=== PATIENT | male | born 1945 | race Caucasian/White ===

== ENCOUNTER 2017-05-18 11:18 | Day surgery (SDC) | payer BC ==
[~2017-05-18] VITALS: Ht 167.6 cm; Wt 101.8 kg
[2017-05-18 12:34] VITALS: Ht 167.6 cm; Wt 101.8 kg
[2017-05-18] MEDS ORDERED: SILO8CAP PO (12:43)
[2017-05-18] MEDS ORDERED: TAMS0.4C2 PO (12:43)
[2017-05-18] MEDS ORDERED: LOSARTAN PO (12:43)
[2017-05-18] MEDS ORDERED: SYN1 PO (12:43)
[2017-05-18] MEDS ORDERED: LIDOCAINE 4% SOLUTION 50 ML BTL ONE (13:09)
[2017-05-18 13:20] VITALS: BP 172/84; PULSE 52; RESP 20
[2017-05-18] MEDS ORDERED: CEFAZOLIN 1 GM/50 ML (PMX) 50 ML IVPB ONE (13:42)
[2017-05-18 14:25] VITALS: BP 157/87; RESP 20
[2017-05-18] MEDS ORDERED: FLUMAZENIL 0.5 MG INJ ONE (17:48)
[2017-05-18] MEDS ORDERED: MIDAZOLAM 1 MG/ML 2 ML INJ ONE ×2 (17:48)
[2017-05-18] MEDS ORDERED: FENTAnyl 50 MCG/ML VIAL ONE (17:49)
--- NOTE | 2017-05-19 03:56 | GILP ---
DATE OF PROCEDURE: PREOPERATIVE DIAGNOSIS: Epigastric pain. He was sent for screening colonoscopy but because of his epigastric pain he underwent EGD with biopsy. POSTOPERATIVE DIAGNOSIS: Severe antral chronic gastritis and duodenal apex of the bulb. There is a suture, probably previous surgical suture. No ulcer seen. PROCEDURE PERFORMED: EGD with biopsy. DESCRIPTION OF PROCEDURE: The patient was put in left lateral decubitus after obtaining informed consent. Posterior pharynx anesthetized with 4 percent xylocaine and 2 mg IV Versed and 50 mcg of fentanyl given very carefully. Advanced an Olympus video upper endoscope into the esophagus, stomach and duodenum. A small hiatal hernia was noted. In the stomach, there was inflammatory changes. In the body and antrum very chronic severe inflammation noted and proximal antrum to the distal antrum and pyloric channel was inflamed. A random biopsy of this area was done and then examination of duodenal showed in the duodenal bulb apex and first part of the duodenum a black suture was noted but no ulcer was seen, and there is mild narrowing of the first part of the duodenum and then second part of the duodenum normal. Then I removed the scope slowly. PLAN: Will be to await for biopsy report. Also will try to get previous surgical reports if possible to find out what kind of surgery he had. Dictated By: Coleman Cerrato MD /kate/lemuel /Document#: [id number] ; Dr. Nelson; Marito Baker
--- NOTE | 2017-05-19 03:56 | GILP ---
DATE OF PROCEDURE: PREOP DIAGNOSIS: Screening colonoscopy. PROCEDURE PERFORMED: Colonoscopy, biopsy and tattooing. POSTOP DIAGNOSIS: Diverticulosis in the left colon with an inflammatory polypoid mucosal fold with wide base at 40 cm, possible inflammation rather than true polyp. Biopsy of this area done, a small inflammatory polyp next to it also biopsied. Fixed right colon. DESCRIPTION OF PROCEDURE: The patient was put in left lateral decubitus after obtaining informed consent. After EGD biopsy and proceeded to sedating further, an Olympus video colonoscope was advanced after 2 mg IV Versed and 50 mcg of fentanyl. Rectal exam showed some hemorrhoids grade 2. Advanced Olympus video colonoscope all the way to the right colon, could enter only the ascending colon, cecal border as the ileocecal valve identified, appendiceal opening not seen. Scope was withdrawn back. Fixed right hepatic flexure and then slowly withdrew, transverse colon unremarkable. Descending colon, sigmoid colon showed not only diverticulosis but am inflammatory polypoid flat mucosal fold which has a 1.5 cm wide base. This was photographed and I decided not to do polypectomy here as it may not be polyp. Biopsies were done. Tattooing done. Next to this another small inflammatory polyp was noted. This was taken out by biopsy forceps, this was at 40 cm level. Then slowly scope was withdrawn. Rectum unremarkable except for retroflexion showed grade 2 internal hemorrhoids. Upon removal of scope, the patient had no complication. PLAN: Will be to await for the biopsy report and Ancef 1 mg IV also given. Follow up as outpatient and depending on the biopsy report we will make a decision. Dictated By: Coleman Cerrato MD /kate/lemuel /Document#: [id number] ; Dr. Marito Baker
== END 2017-05-18 16:22 | disposition home or self-care (01) ==
LOC: GIL 11:18
PROVIDERS: ATTEND Internal Medicine
DX: Z12.11 Encounter for screening for malignant neoplasm of colon (principal); K63.5 Polyp of colon; K57.30 Diverticulosis of large intestine without perforation or abscess without bleeding; K29.50 Unspecified chronic gastritis without bleeding; I10 Essential (primary) hypertension; E11.9 Type 2 diabetes mellitus without complications; Z90.49 Acquired absence of other specified parts of digestive tract
CPT/HCPCS: 43239; 45380; 45381; 82962; J0690; Z7610; 88305; 88312; J2250; J3010

== ENCOUNTER 2019-04-25 05:57 | Day surgery (SDC) | payer BC ==
[~2019-04-25] VITALS: Ht 167.6 cm; Wt 96.2 kg
[~2019-04-25 05:57] MED LIST: LEVO-86 PO; LOSARTAN PO; SILO8CAP2 PO; TAMS0.4C2 PO
[2019-04-25] MEDS ORDERED: LOSA100T15 PO (07:09)
[2019-04-25] MEDS ORDERED: ASPI-903 PO (07:09)
[2019-04-25] MEDS ORDERED: METF-849 PO (07:09)
[2019-04-25] MEDS ORDERED: AMLO5TAB4 PO (07:09)
[2019-04-25] MEDS ORDERED: CLOP75TA27 PO (07:09)
[2019-04-25 07:11] VITALS: Ht 167.6 cm; Wt 96.2 kg
--- NOTE | 2019-04-25 07:31 | PREAC ---
Date/Time of Note Date/Time of Note DATE: 04/25/19 TIME: 07:30 Anesthesia Eval and Record Evaluation Time Pre-Procedure Interview DATE: 04/25/19 TIME: 07:30 Age 73 Sex male NPO: 8 hrs Preoperative diagnosis dyspepsia Planned procedure EGD Past Medical History Past Medical History: Includes Cardio: HTN, Dyslipidemia Endo: Diabetes Neuro: CVA Musculoskeletal: Osteoarthritis Heme: Anemia Surgery & Anesthesia Issues No known issue Meds Anticoagulation: No Beta Cyndie within 24 hr: No Reason Beta Cyndie not given: Pt. not on B-Cyndie Reported Medications Clopidogrel Bisulfate (Clopidogrel) 75 Mg Tablet, 75 MG PO DAILY, #30 TAB 04/25/19 Metformin* (Glucophage*) 500 Mg Tab, 500 MG PO WITH MEALS, #90 TAB 04/25/19 Losartan Potassium* (Losartan Potassium*) 100 Mg Tablet, 100 MG PO DAILY, TAB 04/25/19 Aspirin* (Aspirin* Chew) 81 Mg Tab.chew, 81 MG PO DAILY, TAB.CHEW 04/25/19 Amlodipine Besylate* (Norvasc*) 5 Mg Tablet, 5 MG PO DAILY, TAB 04/25/19 Tamsulosin Hcl* (Tamsulosin Hcl*) 0.4 Mg Cap.er.24h, 0.4 MG PO DAILY, CAP 05/18/17 Levothyroxine Sodium (Levothroid) 100 Mcg Tablet, 100 MCG PO DAILY, #30 TAB 05/18/17 Discontinued Reported Medications Silodosin (Rapaflo) 8 Mg Capsule, 8 MG PO HS, CAP 05/18/17 [Losartan] No Conflict Check, PO DAILY 05/18/17 Meds reviewed: Yes Allergies Coded Allergies: No Known Allergy (Unverified , 05/18/17) Allergies Reviewed: Yes Labs/Studies Labs Reviewed: Reviewed by anesthesiologist test: N/A Studies: ECG Pre-procedure Exam Airway: Adequate mouth opening, Adequate thyromental dist Mallampati: Mallampati II Teeth: Abnormal Lung: Normal Heart: Normal ASA Physical Status ASA physical status: 3 Emergency: None Planned Anesthetic General/MAC: MAC Pre-operative Attestations Prior to commencing anesthesia and surgery, the patient was re-evaluated, there was verification of: *The patient's identity *The results of appropriate recent lab work and preoperative vital signs *The above evaluation not changing prior to induction *Anesthetic plan, risk benefits, alternative and complications discussed with patient/family; questions answered; patient/family understands, accepts and wishes to proceed. ROLANDO MCPHERSON Apr 25, 2019 07:31
[2019-04-25] MEDS ORDERED: PROPOFOL 20 ML ONE (07:35)
[2019-04-25 07:39] VITALS: BP 123/66; PULSE 53; RESP 18
[2019-04-25 08:26] VITALS: BP 137/72; PULSE 51; RESP 18
[2019-04-25] MEDS ORDERED: LEVO100T82 PO (09:13)
[2019-04-25] MEDS ORDERED: LEVO125T71 PO (09:13)
[2019-04-25] MEDS ORDERED: HYDR25TA6 PO (09:14)
[2019-04-25] MEDS ORDERED: LATA2.5D2 BOTH EYES (09:15)
[2019-04-25] MEDS ORDERED: LORA10TA3 PO (09:15)
--- NOTE | 2019-04-28 17:15 | RADRPT ---
Vent Rate: 46 bpm RR Interval: 1296 msec OR Interval: 206 msec QRS Duration: 107 msec QT Interval: 474 msec QTC Interval: 416 msec P-R-T Cap[place]: 53 - 48 - 207 degrees Sinus bradycardia...rate< 50 Repol abnrm, global ischemia, diffuse leads...ST dep, T neg, ant/lat/inf Electronically Signed By: Fred Akers
== END 2019-04-25 10:00 | disposition short-term general hospital (02) ==
LOC: GIL 05:57
PROVIDERS: ATTEND Internal Medicine Gastroenterology
DX: R10.13 Epigastric pain (principal); Z53.09 Procedure and treatment not carried out because of other contraindication; R00.1 Bradycardia, unspecified
CPT/HCPCS: 82962; 93005; Z7610

== ENCOUNTER 2019-04-25 08:45 | Inpatient (IN) | payer BC ==
[~2019-04-25] VITALS: Ht 162.6 cm; Wt 86.0 kg
[~2019-04-25 08:45] MED LIST changes: +AMLO5TAB4 PO; +ASPI-903 PO; +CLOP75TA27 PO; +LOSA100T15 PO; +METF-849 PO
[2019-04-25] MEDS ORDERED: NITROGLYCERIN 2% 1 GM OINT PKT TD STA (09:02)
[2019-04-25] MEDS ORDERED: ASPIRIN 81 MG TAB PO STA (09:02)
[2019-04-25] MEDS ORDERED: LEVO125T71 PO (09:13)
[2019-04-25] MEDS ORDERED: LEVO100T82 PO (09:13)
[2019-04-25] MEDS ORDERED: HYDR25TA6 PO (09:14)
[2019-04-25] MEDS ORDERED: LORA10TA3 PO (09:15)
[2019-04-25] MEDS ORDERED: LATA2.5D2 BOTH EYES (09:15)
[2019-04-25] MEDS ORDERED: ACETAMINOPHEN 325 MG TAB PO PRN (09:30)
[2019-04-25] MEDS ORDERED: NITROGLYCERIN (SL) 0.4 MG TAB SL PRN (09:30)
[2019-04-25] MEDS ORDERED: ONDANSETRON 4 MG INJ IV PRN (09:30)
--- NOTE | 2019-04-25 11:31 | CONS ---
DATE OF ADMISSION: 04/25/2019 DATE OF CONSULTATION: 04/25/2019 TYPE OF CONSULTATION: Cardiology REASON FOR CONSULTATION: Electrocardiogram, assess for acute coronary syndrome. REQUESTING PHYSICIAN: Dr. Posadas. HISTORY OF PRESENT ILLNESS: Mr. Perez is a 73-year-old male with a history of coronary artery disease , on medications, hypertension, hypothyroidism, diabetes mellitus, BPH who had presented for an outpa tient endoscopy procedure given complaints of dyspepsia ongoing for multiple weeks. In fact, ongoing for multiple years. The patient states he does do a weekly workouts at the gym and does not get any exertional chest pain or shortness of breath. PAST MEDICAL HISTORY: As above in HPI. MEDICATIONS PRIOR TO ADMIT: 1. Flomax 0.4 mg daily. 2. Plavix 75 mg daily. 3. Norvasc 5 mg daily. 4. Losartan 100 mg daily. 5. Aspirin 81 mg daily. 6. Hydrochlorothiazide 25 mg daily. 7. Latanoprost 1 drop to eyes. 8. Synthroid 100 mcg daily. 9. Metformin 500 mg with meals. ALLERGIES: NO KNOWN DRUG ALLERGIES. MEDICATIONS CURRENTLY IN HOSPITAL: Pending at this time. SOCIAL HISTORY: No current tobacco, ETOH or illicit drug use. FAMILY HISTORY: No history of sudden cardiac or early CAD. REVIEW OF SYSTEMS: As above in HPI. CONSTITUTIONAL: No fevers, chills. PULMONARY: No current shortness of breath. CARDIOVASCULAR: No current chest pain. GASTROINTESTINAL: Abdominal pain. GENITOURINARY: No hematuria. MUSCULOSKELETAL: Degenerative joint disease. PSYCHIATRIC: The patient has depression. NEUROLOGIC: No documented history of CVA. ENDOCRINE: No documented history of diabetes mellitus. PHYSICAL EXAMINATION: VITAL SIGNS: Temperature 98.2, blood pressure 138/76, pulse 118, sat 99%. GENERAL: The patient is alert, awake, no acute distress. NECK: JVP approximately 8 to 9 cm of water. CHEST: Fair air movement throughout. HEART: Regular rate and rhythm. Normal S1, S2, 1/6 systolic murmur. Nondisplaced PMI. ABDOMEN: Positive bowel sounds, soft. Tender to palpation in mid epigastric. EXTREMITIES: No edema, 1+ pulses bilateral posterior tibial. LABORATORY DATA: Most recent from today, white count 6.2, hemoglobin 12.4, platelet count of 148. S odium 140, potassium 4.6, creatinine 0.9, BUN of 22. Troponin negative. IMAGING STUDIES: Chest x-ray from the revealing mild cardiomegaly. ELECTROCARDIOGRAM: Reveals sinus bradycardia, rate of 44 with inferior and lateral T-wave inversions . IMPRESSION: 1. Abnormal electrocardiogram, assess for acute coronary syndrome. 2. Abdominal pain, rule out inferior ischemia. 3. Hypertension. 4. Dyslipidemia. 5. Diabetes mellitus. 6. Dyspepsia. RECOMMENDATIONS: 1. At this time, would admit patient to telemetry monitoring to follow rhythm and rate control close ly. 2. We would complete a rule out for myocardial infarction to ensure the patient's EKG abnormalities are chronic in nature and not due to any recent acute coronary syndrome. 3. Resume the patient's baseline angiotensin Losartan and Norvasc and hydrochlorothiazide. 4. Continue patient's aspirin at this time . We possibly could hold Plavix if the patient is to still undergo procedures during the time of rule out. 5. Follow the patient's blood sugars closely, adjust Metformin as necessary. 6. Continue the patient's Synthroid and check a TSH to assess the patient's current thyroid state. 7. Check a 2D echo to assess patient's ejection fraction, wall motion and major abnormalities, and w ill consider stress testing of this patient for the possibility of significant coronary disease and s ymptoms of epigastric pain in the setting of abnormal electrocardiograms and electrocardiographic emerald nges. Dictated By: NICOLE ALVARENGA/MARTHA Conf#: [id number] DID#: [id number] CC: SAVI KWOK MD;*End*
--- NOTE | 2019-04-25 12:09 | ERD ---
ER Documentation Chief Complaint Chief Complaint came from GI lab for EGD, sent by for EKG =SB with inverted T waves HPI Patient is a 73-year-old male with diabetes and hypertension who presents with abnormal EKG. He was at the GI lab to get an endoscopy done but screening EKG showed diffuse flipped T waves and so the procedure was aborted and the patient was sent to the emergency department. He has been complaining of dyspepsia which was the reason for the endoscopy in the first place. He denies chest pain at this time or dizziness. He has no headache. He has had no treatment as of yet. ROS All systems reviewed and are negative except as per history of present illness. Medications Home Meds Reported Medications Loratadine* (Loratadine*) 10 Mg Tablet, 10 MG PO DAILY, #30 TAB 04/25/19 Latanoprost (Latanoprost) 2.5 Ml Drops, 1 DROP BOTH EYES QHS, #1 BOTTLE 04/25/19 Hydrochlorothiazide* (Hydrochlorothiazide*) 25 Mg Tab, 25 MG PO DAILY, #30 TAB 04/25/19 Levothyroxine Sodium* (Levoxyl*) 125 Mcg Tablet, 125 MCG PO EVERY OTHER DAY, #30 TAB 04/25/19 Levothyroxine Sodium* (Levoxyl*) 100 Mcg Tablet, 100 MCG PO EVERY OTHER DAY, #30 TAB 04/25/19 Clopidogrel Bisulfate (Clopidogrel) 75 Mg Tablet, 75 MG PO DAILY, #30 TAB 04/25/19 Metformin* (Glucophage*) 500 Mg Tab, 500 MG PO WITH MEALS, #90 TAB 04/25/19 Losartan Potassium* (Losartan Potassium*) 100 Mg Tablet, 100 MG PO DAILY, TAB 04/25/19 Aspirin* (Aspirin* Chew) 81 Mg Tab.chew, 81 MG PO DAILY, TAB.CHEW 04/25/19 Amlodipine Besylate* (Norvasc*) 5 Mg Tablet, 5 MG PO DAILY, TAB 04/25/19 Tamsulosin Hcl* (Tamsulosin Hcl*) 0.4 Mg Cap.er.24h, 0.4 MG PO DAILY, CAP 05/18/17 Discontinued Reported Medications Silodosin (Rapaflo) 8 Mg Capsule, 8 MG PO HS, CAP 05/18/17 Levothyroxine Sodium (Levothroid) 100 Mcg Tablet, 100 MCG PO DAILY, #30 TAB 05/18/17 [Losartan] No Conflict Check, PO DAILY 05/18/17 Allergies Allergies: Coded Allergies: No Known Allergy (Unverified , 04/25/19) PMhx/Soc History of Surgery: Yes (APPENDECTOMY, CHOLECYSTECTOMY) Anesthesia Reaction: No Hx Neurological Disorder: Yes (LEFT CVA) Hx Respiratory Disorders: No Hx Cardiac Disorders: Yes (HTN, DYSLIPIDEMIA, CA) Hx Psychiatric Problems: No Hx Miscellaneous Medical Probl: No Hx Alcohol Use: Yes Hx Substance Use: No Hx Tobacco Use: Yes Smoking Status: Former smoker FmHx Family History: No diabetes Physical Exam Vitals Vital Signs Date Temp Pulse Resp B/P (MAP) Pulse Ox O2 O2 Flow FiO2 Time Delivery Rate 04/25/19 98.6 55 18 107/74 99 Room Air 11:36 (85) 04/25/19 Nasal 2 09:11 Cannula 04/25/19 98.2 51 18 138/76 99 08:49 (96) Physical Exam Const: No acute distress Head: Atraumatic Eyes: Normal Conjunctiva ENT: Normal External Ears, Nose and Mouth. Neck: Full range of motion. No meningismus. Resp: Clear to auscultation bilaterally Cardio: Regular rate and rhythm, no murmurs Abd: Soft, non tender, non distended. Normal bowel sounds Skin: No petechiae or rashes Back: No midline or flank tenderness Ext: No cyanosis, or edema Neur: Awake and alert Psych: Normal Mood and Affect Result Diagram: 04/25/1990404/25/19904 Results 24 hrs Laboratory Tests Test 04/25/19 09:05 White Blood Count 6.2 10^3/ul Red Blood Count 4.09 10^6/ul Hemoglobin 12.4 g/dl Hematocrit 37.3 % Mean Corpuscular Volume 91.2 fl Mean Corpuscular Hemoglobin 30.3 pg Mean Corpuscular Hemoglobin Concent 33.2 g/dl Red Cell Distribution Width 12.8 % Platelet Count 148 10^3/UL Mean Platelet Volume 10.2 fl Immature Granulocytes % 0.300 % Neutrophils % 58.2 % Lymphocytes % 30.5 % Monocytes % 8.4 % Eosinophils % 2.3 % Basophils % 0.3 % Nucleated Red Blood Cells % 0.0 /100WBC Immature Granulocytes # 0.020 10^3/ul Neutrophils # 3.6 10^3/ul Lymphocytes # 1.9 10^3/ul Monocytes # 0.5 10^3/ul Eosinophils # 0.1 10^3/ul Basophils # 0.0 10^3/ul Nucleated Red Blood Cells # 0.0 10^3/ul Sodium Level 140 mmol/L Potassium Level 4.6 mmol/L Chloride Level 106 mmol/L Carbon Dioxide Level 28 mmol/L Anion Gap 6 Blood Urea Nitrogen 22 mg/dl Creatinine 0.93 mg/dl Est Glomerular Filtrat Rate mL/min mL/min Glucose Level 135 mg/dl Calcium Level 8.8 mg/dl Troponin I < 0.012 ng/ml Current Medications Medications Dose Sig/Bernice Start Time Status Last (Trade) Ordered Route PRN Stop Time Admin Dose Reason Admin Aspirin 162 mg ONCE STAT 04/25/19 DC 04/25/19 (Aspirin) PO 09:02 09:23 04/25/19 09:03 1 inch ONCE STAT 04/25/19 DC 04/25/19 Nitroglycerin TD 09:02 09:23 04/25/19 09:03 (Nitroglyceri n 2% Oint) 1 tab Q5M UP TO 3 04/25/19 Nitroglycerin DOSES PRN 09:30 SL .CHEST (Nitroglyceri PAIN n (Sl Tab) 0.4 Mg) Ondansetron 4 mg ER BRIDGE 04/25/19 HCl (Zofran PRN IV 09:30 Inj) NAUSEA/VOMITI 04/26/19 09:29 NG 650 mg ER BRIDGE 04/25/19 Acetaminophen PRN PO 09:30 (Tylenol .MILD PAIN 04/26/19 09:29 Tab) 1-3 OR TEMP Amlodipine 5 mg DAILY PO 04/26/19 Besylate 09:00 (Norvasc) Aspirin 81 mg DAILY PO 04/26/19 (Aspirin) 09:00 25 mg DAILY PO 04/26/19 Hydrochloroth 09:00 iazide (Hydrochlorot hiazide) Losartan 100 mg DAILY PO 04/26/19 Potassium 09:00 (Cozaar) Procedures/MDM EKG #1 read by me: Rate/Rhythm: Regular rate and rhythm at a normal rate Intervals: Normal Impression: Flipped T waves in the lateral leads EKG #2 read by me: Rate/Rhythm: Regular rate and rhythm at a normal rate Intervals: Normal Impression: Flipped T waves in the lateral leads Chest x-ray read by radiology. Patient is a 73-year-old male with multiple cardiac risk factors who presents with abnormal EKG. He was sent from the GI lab. He denies chest pain at this time however there is diffuse flipped T waves in the lateral leads. I am concerned for possible ischemia. The patient was given aspirin and nitroglycerin. Initial troponin is negative. The patient will be admitted to a telemetry observation bed. He has been seen by Dr. Ornelas from cardiology. Departure Diagnosis: Primary Impression: Abnormal EKG Condition: SAVI Campo MD Apr 25, 2019 12:09
[2019-04-25 13:27] VITALS: PULSE 51
[2019-04-25 13:35] VITALS: BP 134/73; PULSE 50; RESP 18
[2019-04-25 14:03] VITALS: Ht 162.6 cm; Wt 86.0 kg
--- NOTE | 2019-04-25 14:10 | RADRPT ---
Echocardiogram Report Patient Name: KASSANDRA STONEPatient ID: [id number] : 1945 (73y 11m)Study Date: 04/25/2019 10:59:37 AM Gender: MAccession #: [id number] Tech: Maxim Ferrara [facility] Location: [facility] Ref.Physician: NICOLE ORNELAS Height(Cm): BSA: Weight(Kg): Quality: AdequateOrder Physician: NICOLE ORNELAS Account #: Procedures: Echocardiographic Report: Transthoracic echocardiogram with complete 2D, M-Mode, and doppler examination. Indications: Abnormal EKG. Measurements: 2D/M Mode Doppler Measurement Value Normal Range Measurement Value Normal Range LVIDd 2D 5.0 [ 4.2 - 5.8 ] cm AV Peak Kevin 1.3 [ 100.0 - 170.0 ] cm/sec LVIDs 2D 3.4 [ 2.5 - 4.0 ] cm AV Peak PG 7.0 [ 2.0 - 9.0 ] mmHg LVPWd 2D 0.9 [ 0.6 - 1.0 ] cm LVOT Peak Kevin 1.3 [ 70.0 - 110.0 ] cm/sec IVSd 2D 1.8 [ 0.6 - 1.0 ] cm LVOT Peak PG 6.0 [ 2.0 - 6.0 ] mmHg AoR Diam 2D 3.3 [ 2.6 - 3.4 ] cm MV E Peak Kevin 0.7 [ 60.0 - 130.0 ] cm/sec EDV 2D 118.0 [ 62.0 - 150.0 ] ml MV A Peak Kevin 0.8 [ 100.0 - 120.0 ] cm/sec ESV 2D 48.1 [ 21.0 - 61.0 ] ml MV E/A 0.8 [ 0.8 - 1.5 ] ratio EF 2D 59.2 [ 52.0 - 72.0 ] percent MV Decel Time 261 [ 104 - 258 ] msec LA Dimen 2D 3.6 [ 3.0 - 4.0 ] cm Lat E` Kevin 0.1 [ 10.0 - 15.0 ] cm/sec Lateral E/E` 11.5 [ 1.0 - 2.0 ] ratio Med E` Kevin 0.0 cm/sec MV E/A 0.8 [ 0.8 - 1.5 ] ratio TR Peak Kevin 1.8 [ 100.0 - 280.0 ] cm/sec TR Peak PG 13.0 mmHg RVSP 16.0 [ 10.0 - 36.0 ] mmHg Findings: Left Ventricle: Normal left ventricular systolic function. Normal left ventricular cavity size. Moderate asymmetric septal hypertrophy. Ejection fraction is visually estimated at 60-65 %. Tissue Doppler/Mitral Doppler indices are consistent with impaired relaxation (Stage I diastolic dysfunction). Right Ventricle: Normal right ventricular size. Normal right ventricular systolic function. Left Atrium: The left atrium is normal in size. Right Atrium: The right atrium is normal in size. Mitral Valve: Mild mitral leaflet calcification. Mild mitral annular calcification. Trace mitral regurgitation. Aortic Valve: No significant aortic stenosis or insufficiency. Aortic cusps appear mildly calcified. Tricuspid Valve: Normal appearance of the tricuspid valve. The estimated Peak RVSP is 16 mmHg. There is trace tricuspid regurgitation. Pericardium: Normal pericardium with no significant pericardial effusion. Left pleural effusion seen. Aorta: Normal aortic root. IVC: Normal size and normal respiratory collapse consistent with normal right atrial pressure. Conclusions: Normal left ventricular systolic function. Normal left ventricular cavity size. Moderate asymmetric septal hypertrophy. Ejection fraction is visually estimated at 60-65 %. Tissue Doppler/Mitral Doppler indices are consistent with impaired relaxation (Stage I diastolic dysfunction). ). Mild mitral leaflet calcification. Mild mitral annular calcification. Trace mitral regurgitation. Normal appearance of the tricuspid valve. The estimated Peak RVSP is 16 mmHg. There is trace tricuspid regurgitation. Electronically Signed By: Nicole Ornelas 2019-04-25 14:09:36 PDT
[2019-04-25 15:49] VITALS: BP 140/74; PULSE 52; RESP 18
[2019-04-25 16:00] VITALS: PULSE 50
[2019-04-25] MEDS: TAMSULOSIN (SR) 0.4 MG CAP PO SCH (17:00)
[2019-04-25] MEDS: INSULIN ASPART [NOVOLOG] 3 ML PEN SC SCH ×2 (17:01→21:00)
[2019-04-25] MEDS: metFORMIN 500 MG TAB PO SCH (17:56)
[2019-04-25 20:00] VITALS: BP 130/72; PULSE 56; RESP 18
[2019-04-25] MEDS: LATANOPROST 0.005% 2.5 ML OPH BOTH EYES SCH (21:00)
[2019-04-25 23:01] VITALS: PULSE 44
[2019-04-26] VITALS (10 sets, daily range): BP systolic 119–147; BP diastolic 60–92; PULSE 51–64; RESP 18
[2019-04-26] MEDS: INSULIN ASPART [NOVOLOG] 3 ML PEN SC SCH ×4 (07:55→21:00)
[2019-04-26] MEDS: ASPIRIN 81 MG TAB PO SCH (08:52)
[2019-04-26] MEDS: HYDROCHLOROTHIAZIDE 25 MG TAB PO SCH (08:53)
[2019-04-26] MEDS: metFORMIN 500 MG TAB PO SCH ×3 (08:53→17:46)
[2019-04-26] MEDS: LOSARTAN 50 MG TAB PO SCH (08:53)
[2019-04-26] MEDS: TAMSULOSIN (SR) 0.4 MG CAP PO SCH (08:53)
[2019-04-26] MEDS: LORATADINE 10 MG TAB PO SCH (08:53)
[2019-04-26] MEDS: LEVOTHYROXINE 100 MCG TAB PO SCH (08:56)
[2019-04-26] MEDS ORDERED: AMLODIPINE 5 MG TAB PO SCH (09:00)
[2019-04-26] MEDS ORDERED: REGADENOSON 0.4 MG/5 ML SYG ONE (13:16)
--- NOTE | 2019-04-26 13:48 | CONS ---
Consult Date/Type/Reason Admit Date/Time Apr 25, 2019 at 09:07 Initial Consult Date Date/Time of Note DATE: 04/26/19 TIME: 13:47 Subjective NO acute events - pt comfortable - completed Stress test - will have results by early PM. ROS: No fever, no chills, no nausea, no vomiting, no diarrhea/constipation No recent weight changes No chest pain, no PND, no orthopnea No dizziness, blurred vision No thirst, no heat or cold intolerance Objective Vitals Vital Signs Date Temp Pulse Resp B/P (MAP) Pulse Ox O2 O2 Flow FiO2 Time Delivery Rate 04/26/19 98.3 55 18 147/81 100 11:51 (103) 04/25/19 Room Air 13:00 04/25/19 2 09:11 Intake and Output 04/25/19 04/25/19 04/26/19 1515:00 23:00 07:00 IntakeIntake Total 240 ml 540 ml OutputOutput Total 1 ml 2 ml BalanceBalance 239 ml 538 ml Exam General: WN/WD/NAD, AOx 3 HEENT: Unicetric/atraumatic/EOMI (follows commands) NECK: JVD elevated, no thyromegaly Lymph: no lymphadenopathy HEART: regular with no S3, II/ systolic murmur at apex LUNGS: Coarse sounds ABD: soft, NT, ND, +BS : Intact Neuro: non focal SKIN: chronic changes EXT: trace edema Results/Medications Result Diagram: 04/25/1990404/25/19904 Results 24 hrs Laboratory Tests Test 04/25/19 15:06 04/25/19 17:01 04/25/19 20:25 04/25/19 21:21 Creatine Kinase 68 68 Creatine Kinase 1.9 1.7 Index Creatinine Kinase MB 1.32 1.15 (Mass) Troponin I < 0.012 < 0.012 Bedside Glucose 107 173 Test 04/26/19 05:52 04/26/19 07:59 04/26/19 11:54 Triglycerides Level 112 Cholesterol Level 134 LDL Cholesterol, 70 Calculated HDL Cholesterol 42 Cholesterol/HDL 3.1 Ratio Thyroid Stimulating 8.340 H Hormone (TSH) Bedside Glucose 123 132 Home Meds Reported Medications Loratadine* (Loratadine*) 10 Mg Tablet, 10 MG PO DAILY, #30 TAB 04/25/19 Latanoprost (Latanoprost) 2.5 Ml Drops, 1 DROP BOTH EYES QHS, #1 BOTTLE 04/25/19 Hydrochlorothiazide* (Hydrochlorothiazide*) 25 Mg Tab, 25 MG PO DAILY, #30 TAB 04/25/19 Levothyroxine Sodium* (Levoxyl*) 125 Mcg Tablet, 125 MCG PO EVERY OTHER DAY, #30 TAB 04/25/19 Levothyroxine Sodium* (Levoxyl*) 100 Mcg Tablet, 100 MCG PO EVERY OTHER DAY, #30 TAB 04/25/19 Clopidogrel Bisulfate (Clopidogrel) 75 Mg Tablet, 75 MG PO DAILY, #30 TAB 04/25/19 Metformin* (Glucophage*) 500 Mg Tab, 500 MG PO WITH MEALS, #90 TAB 04/25/19 Losartan Potassium* (Losartan Potassium*) 100 Mg Tablet, 100 MG PO DAILY, TAB 04/25/19 Aspirin* (Aspirin* Chew) 81 Mg Tab.chew, 81 MG PO DAILY, TAB.CHEW 04/25/19 Amlodipine Besylate* (Norvasc*) 5 Mg Tablet, 5 MG PO DAILY, TAB 04/25/19 Tamsulosin Hcl* (Tamsulosin Hcl*) 0.4 Mg Cap.er.24h, 0.4 MG PO DAILY, CAP 05/18/17 Discontinued Reported Medications Silodosin (Rapaflo) 8 Mg Capsule, 8 MG PO HS, CAP 05/18/17 Levothyroxine Sodium (Levothroid) 100 Mcg Tablet, 100 MCG PO DAILY, #30 TAB 05/18/17 [Losartan] No Conflict Check, PO DAILY 05/18/17 Medications Current Medications Nitroglycerin (Nitroglycerin (Sl Tab) 0.4 Mg) 1 tab Q5M UP TO 3 DOSES PRN SL .CHEST PAIN; Start 04/25/19 at 09:30 Aspirin (Aspirin) 81 mg DAILY PO Last administered on 04/26/19at 08:52; Admin Dose 81 MG; Start 04/26/19 at 09:00 Hydrochlorothiazide (Hydrochlorothiazide) 25 mg DAILY PO Last administered on 04/26/19at 08:53; Admin Dose 25 MG; Start 04/26/19 at 09:00 Losartan Potassium (Cozaar) 100 mg DAILY PO Last administered on 04/26/19at 08:53; Admin Dose 100 MG; Start 6/25/19 at 09:00 Latanoprost (Xalatan) 1 drop QHS BOTH EYES Last administered on 04/25/19 21:00; Admin Dose 1 DROP; Start 04/25/19 at 21:00 Levothyroxine Sodium (Synthroid) 100 mcg AC BREAKFAST PO Last administered on 04/26/19 08:56; Admin Dose 100 MCG; Start 04/26/19 at 07:25 Loratadine (Claritin) 10 mg DAILY PO Last administered on 04/26/19 08:53; Admin Dose 10 MG; Start 04/26/19 at 09:00 Metformin HCl (Glucophage) 500 mg WITH MEALS PO Last administered on 04/26/19 08:53; Admin Dose 500 MG; Start 04/25/19 at 17:55 Tamsulosin HCl (Flomax) 0.4 mg DAILY PO Last administered on 04/26/19 08:53; Admin Dose 0.4 MG; Start 04/25/19 at 15:00 Insulin Aspart (Novolog Insulin Pen) NOVOLOG *MILD* ALGORI... WITH MEALS BEDTIME SC ; Start 04/25/19 at 17:55 Assessment/Plan Hospital Course (Demo Recall) 1. Abnormal electrocardiogram, assess for acute coronary syndrome - Stress test complete, will monitor clinically now. 2. Abdominal pain, rule out inferior ischemia- r/o PA now. 3. Hypertension - on meds, well maintained currently. 4. Dyslipidemia- tretaed. 5. Diabetes mellitus - on meds, keep euglycemic. 6. Dyspepsia- defer to GI. MARKUS MIX MD Apr 26, 2019 13:48
--- NOTE | 2019-04-26 15:40 | HP ---
Date/Time of Note Date/Time of Note DATE: Late entry, patient is seen on 04/25/19 TIME: 12:38 Assessment/Plan VTE Prophylaxis Risk score (from Ns)>0 risk: 3 SCD applied (from Ns): Yes Pharmacological prophylaxis: NA/contraindicated Pharm contraindication: surgical contra Lines/Catheters IV Catheter Type (from [facility]): Saline Lock Urinary Cath still in place: No Assessment/Plan Assessment/Plan -Abnormal EKG, rule out acute coronary syndrome, will obtain cardiac enzymes q. 8 hours x 3, 2D echo. Continue aspirin. Admit to telemetry floor. Dr. Ornelas is asked to see patient in cardiology consultation. -Hypertension, continue Cozaar and hydrochlorothiazide. -Hyperlipidemia, continue statin. -Diabetes mellitus type 2, continue metformin and NovoLog per mild algorithm sliding scale. -Hypothyroidism, continue levothyroxine. -BPH continue tamsulosin. -History of stroke -Former smoker Further recommendations based on clinical course. Plan of care discussed with Dr. Green. Result Diagram: 04/25/1990404/25/19904 Results 24hrs Laboratory Tests Test 04/25/19 17:01 04/25/19 20:25 04/25/19 21:21 04/26/19 05:52 Bedside Glucose 107 173 Creatine Kinase 68 Creatine Kinase 1.7 Index Creatinine Kinase MB 1.15 (Mass) Troponin I < 0.012 Triglycerides Level 112 Cholesterol Level 134 LDL Cholesterol, 70 Calculated HDL Cholesterol 42 Cholesterol/HDL 3.1 Ratio Thyroid Stimulating 8.340 H Hormone (TSH) Test 04/26/19 07:59 04/26/19 11:54 Bedside Glucose 123 132 HPI/ROS Admit Date/Time Admit Date/Time Apr 25, 2019 at 09:07 Hx of Present Illness The patient is 73-year-old male with history of hypertension, hyperlipidemia, hypothyroidism, diabetes, history of stroke with residual mild right hand and right face numbness, BPH. Patient had a history of gastritis which was found during EGD 2 years ago and confirmed by gastric biopsy. Patient also underwent a colonoscopy with polypectomy 2 years ago with notion of diverticulosis. Patient was scheduled for outpatient EGD procedure due to complaints of dyspepsia. During the evaluation by anesthesiologist patient was found to have abnormal EKG, sinus bradycardia with inverted T wave. EGD procedure was canceled and patient was sent to the emergency room for further evaluation and management. Patient denies any shortness of breath, however, complains of epigastric pain. Patient denies any fever, chills, denies any nausea, vomiting, diarrhea. Patient has a history of smoking for 50 years, quit 1-1/2 years ago when he suffered a stroke. Patient will be admitted for further evaluation and management to telemetry floor. ROS 12 point review of system is negative except for what mentioned in HPI. PMH/Family/Social Past Medical History Medical History: diabetes, high cholesterol, hypertension, hypothyroid Medications Current Medications Nitroglycerin (Nitroglycerin (Sl Tab) 0.4 Mg) 1 tab Q5M UP TO 3 DOSES PRN SL .CHEST PAIN; Start 04/25/19 at 09:30 Aspirin (Aspirin) 81 mg DAILY PO Last administered on 04/26/19 08:52; Admin Dose 81 MG; Start 04/26/19 at 09:00 Hydrochlorothiazide (Hydrochlorothiazide) 25 mg DAILY PO Last administered on 04/26/19 08:53; Admin Dose 25 MG; Start 04/26/19 at 09:00 Losartan Potassium (Cozaar) 100 mg DAILY PO Last administered on 04/26/19 08:53; Admin Dose 100 MG; Start 04/26/19 at 09:00 Latanoprost (Xalatan) 1 drop QHS BOTH EYES Last administered on 04/25/19 21:00; Admin Dose 1 DROP; Start 04/25/19 at 21:00 Levothyroxine Sodium (Synthroid) 100 mcg AC BREAKFAST PO Last administered on 04/26/19 08:56; Admin Dose 100 MCG; Start 04/26/19 at 07:25 Loratadine (Claritin) 10 mg DAILY PO Last administered on 04/26/19 08:53; Ad min Dose 10 MG; Start 04/26/19 at 09:00 Metformin HCl (Glucophage) 500 mg WITH MEALS PO Last administered on 04/26/19 08:53; Admin Dose 500 MG; Start 04/25/19 at 17:55 Tamsulosin HCl (Flomax) 0.4 mg DAILY PO Last administered on 04/26/19 08:53; Admin Dose 0.4 MG; Start 04/25/19 at 15:00 Insulin Aspart (Novolog Insulin Pen) NOVOLOG *MILD* ALGORI... WITH MEALS BEDTIME SC ; Start 04/25/19 at 17:55 Coded Allergies: No Known Allergy (Unverified , 04/25/19) Past Surgical History Past Surgical Hx: cholecystectomy (7 years ago), other (Status post EGD and colonoscopy in May 2017) Social History Alcohol Use: rarely Smoking Status: Former smoker Drug Use: none Exam/Review of Systems Vital Signs Vitals Vital Signs Date Temp Pulse Resp B/P (MAP) Pulse Ox O2 O2 Flow FiO2 Time Delivery Rate 04/26/19 98.5 63 18 128/92 96 15:15 (104) 04/25/19 Room Air 13:00 04/25/19 2 09:11 Intake and Output 04/25/19 04/25/19 04/26/19 1515:00 23:00 07:00 IntakeIntake Total 240 ml 540 ml OutputOutput Total 1 ml 2 ml BalanceBalance 239 ml 538 ml Exam Constitutional: alert, oriented Head: normocephalic Neck: supple Respiratory: clear to auscultation Cardiovascular: regular rate and rhythm, nl pulses Gastrointestinal: soft, non-tender Musculoskeletal: nl extremities to inspection Extremities: normal pulses Neurological: nl mental status Skin: nl LAMONTE Matthew Apr 26, 2019 15:40
--- NOTE | 2019-04-26 16:28 | PN ---
Date/Time of Note Date/Time of Note DATE: 04/26/19 TIME: 16:28 Assessment/Plan VTE Prophylaxis Risk score (from Ns)>0 risk: 3 SCD applied (from Nsg): Yes Pharmacological prophylaxis: other Lines/Catheters IV Catheter Type (from Nrs): Saline Lock Urinary Cath still in place: No Assessment/Plan Hospital Course Patient status post stress test today, complains of epigastric pain, denies any shortness of breath. Assessment/Plan Assessment/Plan -Abnormal EKG, rule out acute coronary syndrome, cardiac enzymes are negativex 3, 2D echo with preserved EF. Continue aspirin. Dr. Ornelas is following in cardiology consultation. -Hypertension, continue Cozaar and hydrochlorothiazide. -Hyperlipidemia, continue statin. -Diabetes mellitus type 2, continue metformin and NovoLog per mild algorithm sliding scale. -Hypothyroidism, continue levothyroxine. -BPH continue tamsulosin. -History of stroke -Former smoker Further recommendations based on clinical course. Plan of care discussed with Dr. Green. Result Diagram: 04/25/1990404/25/19904 Results 24hrs Laboratory Tests Test 04/25/19 17:01 04/25/19 20:25 04/25/19 21:21 04/26/19 05:52 Bedside Glucose 107 173 Creatine Kinase 68 Creatine Kinase 1.7 Index Creatinine Kinase MB 1.15 (Mass) Troponin I < 0.012 Triglycerides Level 112 Cholesterol Level 134 LDL Cholesterol, 70 Calculated HDL Cholesterol 42 Cholesterol/HDL 3.1 Ratio Thyroid Stimulating 8.340 H Hormone (TSH) Test 04/26/19 07:59 04/26/19 11:54 Bedside Glucose 123 132 Exam/Review of Systems Exam Vitals Vital Signs Date Temp Pulse Resp B/P (MAP) Pulse Ox O2 O2 Flow FiO2 Time Delivery Rate 04/26/19 98.5 63 18 128/92 96 15:15 (104) 04/25/19 Room Air 13:00 04/25/19 2 09:11 Intake and Output 04/25/19 04/25/19 04/26/19 1515:00 23:00 07:00 IntakeIntake Total 240 ml 540 ml OutputOutput Total 1 ml 2 ml BalanceBalance 239 ml 538 ml Exam Constitutional: alert, oriented Respiratory: clear to auscultation Cardiovascular: regular rate and rhythm Gastrointestinal: soft, non-tender Musculoskeletal: nl extremities to inspection Extremities: normal pulses Neurological: nl mental status Skin: nl turgor Results Results 24hrs Laboratory Tests Test 04/25/19 17:01 04/25/19 20:25 04/25/19 21:21 04/26/19 05:52 Bedside Glucose 107 173 Creatine Kinase 68 Creatine Kinase 1.7 Index Creatinine Kinase MB 1.15 (Mass) Troponin I < 0.012 Triglycerides Level 112 Cholesterol Level 134 LDL Cholesterol, 70 Calculated HDL Cholesterol 42 Cholesterol/HDL 3.1 Ratio Thyroid Stimulating 8.340 H Hormone (TSH) Test 04/26/19 07:59 04/26/19 11:54 Bedside Glucose 123 132 Medications Medication Current Medications Nitroglycerin (Nitroglycerin (Sl Tab) 0.4 Mg) 1 tab Q5M UP TO 3 DOSES PRN SL .CHEST PAIN; Start 04/25/19 at 09:30 Aspirin (Aspirin) 81 mg DAILY PO Last administered on 04/26/19 08:52; Admin Dose 81 MG; Start 04/26/19 at 09:00 Hydrochlorothiazide (Hydrochlorothiazide) 25 mg DAILY PO Last administered on 04/26/19 08:53; Admin Dose 25 MG; Start 04/26/19 at 09:00 Losartan Potassium (Cozaar) 100 mg DAILY PO Last administered on 04/26/19 08:53; Admin Dose 100 MG; Start 04/26/19 at 09:00 Latanoprost (Xalatan) 1 drop QHS BOTH EYES Last administered on 04/25/19 21:00; Admin Dose 1 DROP; Start 04/25/19 at 21:00 Levothyroxine Sodium (Synthroid) 100 mcg AC BREAKFAST PO Last administered on 04/26/19 08:56; Admin Dose 100 MCG; Start 04/26/19 at 07:25 Loratadine (Claritin) 10 mg DAILY PO Last administered on 04/26/19 08:53; Admin Dose 10 MG; Start 04/26/19 at 09:00 Metformin HCl (Glucophage) 500 mg WITH MEALS PO Last administered on 04/26/19 08:53; Admin Dose 500 MG; Start 04/25/19 at 17:55 Tamsulosin HCl (Flomax) 0.4 mg DAILY PO Last administered on 04/26/19 08:53; Admin Dose 0.4 MG; Start 04/25/19 at 15:00 Insulin Aspart (Novolog Insulin Pen) NOVOLOG *MILD* ALGORI... WITH MEALS BEDTIME SC ; Start 04/25/19 at 17:55 LAMONTE COLLIER Apr 26, 2019 16:28
--- NOTE | 2019-04-26 18:42 | CARRPT ---
DATE OF PROCEDURE: PROCEDURE: Lexiscan Cardiolite stress test. REFERRING PHYSICIAN: Dr. Green. REASON FOR EVALUATION: Precordial chest pain, abnormal EKG. DESCRIPTION OF PROCEDURE: The patient was brought to the heart station. Informed consent was obtain ed. Initial blood pressure 136/80. His EKG showed some nonspecific changes, fairly unusual T-wave r epolarization pattern and deep inferior Q-waves as well as right bundle branch block pattern. The pa tient tolerated the injection well. The imaging portion will be dictated separately. Dictated By: MARKUS MIX MD ML/NTS Conf#: [id number] DID#: [id number] CC: DAWOOD GREEN MD;*End*
[2019-04-26] MEDS: LATANOPROST 0.005% 2.5 ML OPH BOTH EYES SCH (21:00)
[2019-04-27] VITALS (11 sets, daily range): BP systolic 114–139; BP diastolic 58–76; PULSE 56–96; RESP 18–20
[2019-04-27] MEDS: metFORMIN 500 MG TAB PO SCH ×3 (07:53→17:41)
[2019-04-27] MEDS: LEVOTHYROXINE 100 MCG TAB PO SCH (07:53)
[2019-04-27] MEDS: INSULIN ASPART [NOVOLOG] 3 ML PEN SC SCH ×4 (07:54→20:10)
[2019-04-27] MEDS: TAMSULOSIN (SR) 0.4 MG CAP PO SCH (08:39)
[2019-04-27] MEDS: ASPIRIN 81 MG TAB PO SCH (08:39)
[2019-04-27] MEDS: LORATADINE 10 MG TAB PO SCH (08:40)
[2019-04-27] MEDS: HYDROCHLOROTHIAZIDE 25 MG TAB PO SCH (08:40)
[2019-04-27] MEDS: LOSARTAN 50 MG TAB PO SCH (08:40)
--- NOTE | 2019-04-27 13:42 | CONS ---
Assessment/Plan Assessment/Plan Hospital Course (Demo Recall) IMPRESSION: 1. Abnormal electrocardiogram, assess for acute coronary syndrome.-neg trop x 3/NL EF by echo. No ischem,iaby Lexiscan with NL EF 2. Abdominal pain, rule out inferior ischemia.-negtrop x 3/nO ischemia by lexiscan 3. Hypertension. 4. Dyslipidemia. 5. Diabetes mellitus. 6. Dyspepsia. Recc: -Tele -Contiue asa -Continue HCTZ/losartan -ok to proceed with endoscopy at this time at overall low cardiovascular risk Consultation Date/Type/Reason Admit Date/Time Apr 25, 2019 at 09:07 Initial Consult Date 04/25/19 Type of Consult Cardiology Reason for Consultation abnl ecg/chest pain Requesting Provider: DAWOOD BERUMEN MD Date/Time of Note DATE: 04/27/19 TIME: 13:39 Exam/Review of Systems Vital Signs Vitals Vital Signs Date Temp Pulse Resp B/P (MAP) Pulse Ox O2 O2 Flow FiO2 Time Delivery Rate 04/27/19 97.6 60 18 124/73 96 Room Air 11:03 (90) 04/25/19 2 09:11 Intake and Output 04/26/19 04/26/19 04/27/19 1515:00 23:00 07:00 IntakeIntake Total 200 ml 1490 ml 640 ml BalanceBalance 200 ml 1490 ml 640 ml Exam Exam Review of Systems: CONSTITUTIONAL: No fevers, chills. PULMONARY: No sob CARDIOVASCULAR: No chest pain/palpitations GASTROINTESTINAL: No nausea/vomiting. GENITOURINARY: No hematuria/dysuria. MUSCULOSKELETAL: No myagias/arthalgias. PSYCHIATRIC: The patient denies depression. NEUROLOGIC: No weakness Constitutional: alert Psych: no complaints Head: normocephalic ENMT: mucosa pink and moist Neck: supple, jvd (9 cm water) Respiratory: clear to auscultation Cardiovascular: regular rate and rhythm Gastrointestinal: soft, non-tender Musculoskeletal: muscle tone (normal) Extremities: edema (none) Neurological: other (No focal deficits) Labs Result Diagram: 04/25/19 0905 04/27/19 0736 Results 24hrs Laboratory Tests Test 04/26/19 17:11 04/26/19 21:09 04/27/19 07:36 04/27/19 07:51 Bedside Glucose 175 173 130 Sodium Level 141 Potassium Level 4.2 Chloride Level 107 Carbon Dioxide Level 26 Anion Gap 8 Blood Urea Nitrogen 18 Creatinine 0.90 Est Glomerular Filtrat Rate mL/min Glucose Level 141 Hemoglobin A1c 6.6 H Calcium Level 9.0 Total Bilirubin 0.7 Direct Bilirubin 0.00 Indirect Bilirubin 0.7 Aspartate Amino 25 Transf (AST/SGOT) Alanine 32 Aminotransferase (AL T/SGPT) Alkaline Phosphatase 131 H Total Protein 6.6 Albumin 3.6 Globulin 3.00 Albumin/Globulin 1.20 Ratio Free Thyroxine 0.83 Test 04/27/19 13:28 Bedside Glucose 134 Medications Medications Current Medications Nitroglycerin (Nitroglycerin (Sl Tab) 0.4 Mg) 1 tab Q5M UP TO 3 DOSES PRN SL .CHEST PAIN; Start 04/25/19 at 09:30 Aspirin (Aspirin) 81 mg DAILY PO Last administered on 04/27/19 08:39; Admin Dose 81 MG; Start 04/26/19 at 09:00 Hydrochlorothiazide (Hydrochlorothiazide) 25 mg DAILY PO Last administered on 04/27/19 08:40; Admin Dose 25 MG; Start 04/26/19 at 09:00 Losartan Potassium (Cozaar) 100 mg DAILY PO Last administered on 04/27/19 08:40; Admin Dose 100 MG; Start 04/26/19 at 09:00 Latanoprost (Xalatan) 1 drop QHS BOTH EYES Last administered on 04/26/19 21:00; Admin Dose 1 DROP; Start 04/25/19 at 21:00 Levothyroxine Sodium (Synthroid) 100 mcg AC BREAKFAST PO Last administered on 04/27/19 07:53; Admin Dose 100 MCG; Start 04/26/19 at 07:25 Loratadine (Claritin) 10 mg DAILY PO Last administered on 04/27/19 08:40; Admin Dose 10 MG; Start 04/26/19 at 09:00 Metformin HCl (Glucophage) 500 mg WITH MEALS PO Last administered on 04/27/19 13:29; Admin Dose 500 MG; Start 04/25/19 at 17:55 Tamsulosin HCl (Flomax) 0.4 mg DAILY PO Last administered on 04/27/19 08:39; Admin Dose 0.4 MG; Start 04/25/19 at 15:00 Insulin Aspart (Novolog Insulin Pen) NOVOLOG *MILD* ALGORI... WITH MEALS BEDTIME SC Last administered on 04/26/19at 17:50; Admin Dose 1 UNIT; Start 04/25/19 at 17:55 NIOCLE TURNER Apr 27, 2019 13:42
--- NOTE | 2019-04-27 16:39 | PN ---
Date/Time of Note Date/Time of Note DATE: 04/27/19 TIME: 16:35 Assessment/Plan VTE Prophylaxis Risk score (from Ns)>0 risk: 3 SCD applied (from Ns): Yes Pharmacological prophylaxis: NA/contraindicated Pharm contraindication: surgical contra Lines/Catheters [facility] Saline Lock Urinary Cath still in place: No Assessment/Plan Hospital Course Patient denies any chest pain denies shortness of breath, cleared for endoscopy from cardiology standpoint. Dr. Posadas is called and would most likely schedule for EGD tomorrow. Plan of care discussed with patient. Assessment/Plan -Abnormal EKG, rule out acute coronary syndrome, cardiac enzymes are negative x 3, 2D echo with preserved EF. Lexiscan with no ischemia. continue aspirin. Dr. Ornelas is following in cardiology consultation. -Hypertension, continue Cozaar and hydrochlorothiazide. -Hyperlipidemia, continue statin. -Diabetes mellitus type 2, continue metformin and NovoLog per mild algorithm sliding scale. -Hypothyroidism, continue levothyroxine. -BPH continue tamsulosin. -History of stroke -Former smoker Further recommendations based on clinical course. Plan of care discussed with Dr. Green. Result Diagram: 04/25/19 0905 04/27/19 0736 Results 24hrs Laboratory Tests Test 04/26/19 17:11 04/26/19 21:09 04/27/19 07:36 04/27/19 07:51 Bedside Glucose 175 173 130 Sodium Level 141 Potassium Level 4.2 Chloride Level 107 Carbon Dioxide Level 26 Anion Gap 8 Blood Urea Nitrogen 18 Creatinine 0.90 Est Glomerular Filtrat Rate mL/min Glucose Level 141 Hemoglobin A1c 6.6 H Calcium Level 9.0 Total Bilirubin 0.7 Direct Bilirubin 0.00 Indirect Bilirubin 0.7 Aspartate Amino 25 Transf (AST/SGOT) Alanine 32 Aminotransferase (AL T/SGPT) Alkaline Phosphatase 131 H Total Protein 6.6 Albumin 3.6 Globulin 3.00 Albumin/Globulin 1.20 Ratio Free Thyroxine 0.83 Test 04/27/19 13:28 Bedside Glucose 134 Exam/Review of Systems Exam Vitals Vital Signs Date Temp Pulse Resp B/P (MAP) Pulse Ox O2 O2 Flow FiO2 Time Delivery Rate 04/27/19 98.0 61 19 119/75 97 Room Air 15:01 (90) 04/25/19 2 09:11 Intake and Output 6/25/19 6/25/19 6/26/19 1515:00 23:00 07:00 IntakeIntake Total 200 ml 1490 ml 640 ml BalanceBalance 200 ml 1490 ml 640 ml Exam Constitutional: alert, oriented Respiratory: clear to auscultation Cardiovascular: regular rate and rhythm Gastrointestinal: soft, non-tender Musculoskeletal: nl extremities to inspection Extremities: normal pulses Neurological: nl mental status Skin: nl turgor Results Results 24hrs Laboratory Tests Test 04/26/19 17:11 04/26/19 21:09 04/27/19 07:36 04/27/19 07:51 Bedside Glucose 175 173 130 Sodium Level 141 Potassium Level 4.2 Chloride Level 107 Carbon Dioxide Level 26 Anion Gap 8 Blood Urea Nitrogen 18 Creatinine 0.90 Est Glomerular Filtrat Rate mL/min Glucose Level 141 Hemoglobin A1c 6.6 H Calcium Level 9.0 Total Bilirubin 0.7 Direct Bilirubin 0.00 Indirect Bilirubin 0.7 Aspartate Amino 25 Transf (AST/SGOT) Alanine 32 Aminotransferase (AL T/SGPT) Alkaline Phosphatase 131 H Total Protein 6.6 Albumin 3.6 Globulin 3.00 Albumin/Globulin 1.20 Ratio Free Thyroxine 0.83 Test 04/27/19 13:28 Bedside Glucose 134 Medications Medication Current Medications Nitroglycerin (Nitroglycerin (Sl Tab) 0.4 Mg) 1 tab Q5M UP TO 3 DOSES PRN SL .CHEST PAIN; Start 04/25/19 at 09:30 Aspirin (Aspirin) 81 mg DAILY PO Last administered on 04/27/19at 08:39; Admin Dose 81 MG; Start 04/26/19 at 09:00 Hydrochlorothiazide (Hydrochlorothiazide) 25 mg DAILY PO Last administered on 04/27/19at 08:40; Admin Dose 25 MG; Start 04/26/19 at 09:00 Losartan Potassium (Cozaar) 100 mg DAILY PO Last administered on 04/27/19at 08:40; Admin Dose 100 MG; Start 04/26/19 at 09:00 Latanoprost (Xalatan) 1 drop QHS BOTH EYES Last administered on 04/26/19at 21:00; Admin Dose 1 DROP; Start 04/25/19 at 21:00 Levothyroxine Sodium (Synthroid) 100 mcg AC BREAKFAST PO Last administered on 04/27/19at 07:53; Admin Dose 100 MCG; Start 04/26/19 at 07:25 Loratadine (Claritin) 10 mg DAILY PO Last administered on 04/27/19at 08:40; Admin Dose 10 MG; Start 04/26/19 at 09:00 Metformin HCl (Glucophage) 500 mg WITH MEALS PO Last administered on 04/27/19at 13:29; Admin Dose 500 MG; Start 04/25/19 at 17:55 Tamsulosin HCl (Flomax) 0.4 mg DAILY PO Last administered on 04/27/19at 08:39; Admin Dose 0.4 MG; Start 04/25/19 at 15:00 Insulin Aspart (Novolog Insulin Pen) NOVOLOG *MILD* ALGORI... WITH MEALS BEDTIME SC Last administered on 04/26/19at 17:50; Admin Dose 1 UNIT; Start 04/25/19 at 17:55 LAMONTE COLLIER Apr 27, 2019 16:39
[2019-04-27] MEDS ORDERED: GLUCOSE GEL 15 GRAM TUBE BUCCAL PRN (17:00)
[2019-04-27] MEDS ORDERED: DEXTROSE 50% 50 ML SYRINGE IV PRN ×2 (17:00)
[2019-04-27] MEDS ORDERED: GLUCAGON 1 MG INJ IM PRN (17:00)
[2019-04-27] MEDS ORDERED: GLUCOSE GEL 15 GRAM TUBE PO PRN ×2 (17:00)
[2019-04-27] MEDS ORDERED: MAGNESIUM CITRATE 300 ML BTL PO ONE (17:30)
[2019-04-27] MEDS: LACTULOSE 30ML CUP PO SCH ×2 (20:12→23:41)
[2019-04-27] MEDS: LATANOPROST 0.005% 2.5 ML OPH BOTH EYES SCH (20:12)
[2019-04-28] VITALS (15 sets, daily range): BP systolic 106–152; BP diastolic 59–77; PULSE 48–57; RESP 11–20
--- NOTE | 2019-04-28 00:29 | CONS ---
DATE OF ADMISSION: 04/25/2019 DATE OF CONSULTATION: Dear Dr. Berumen: Thank you for asking me to see Mr. Perez in GI consultation. HISTORY OF PRESENT ILLNESS: The patient, as you know, is a 73-year-old male, admitted to the hospital from the emergency room. Initially, he was brought to the GI lab for upper endoscop y, lower endoscopy. Because of the abnormal electrocardiogram the procedure was canceled and he was sent to the emergency room where cardiology, Dr. Ornelas, has evaluated the patient and subsequently patient was admitted and the patient underwent stress testing which apparently turned out to be deng l, and finally Dr. Ornelas has cleared the patient from the cardiology standpoint for further workup. REVIEW OF SYSTEMS: Positive for hypothyroidism, BPH, history of a CVA in the past, hypertension, dys lipidemia. PHYSICAL EXAMINATION: GENERAL: The patient is a 73-year-old gentleman who at this time is alert, is well bu ilt. VITAL SIGNS: Afebrile. CARDIOVASCULAR: Normal heart sounds. RESPIRATORY: Normal breath sounds. ABDOMEN: Shows soft abdomen. LABORATORY WORKUP: Hemoglobin 12.4, WBC count 6200. Potassium is 4.2. CLINICAL IMPRESSION: 1. The patient presenting with history of anemia, irregular bowel movements, rule out peptic ulcer d isease, rule out gastritis, rule out colorectal neoplasm. 2. History of abnormal electrocardiogram, which apparently turned out to be not acute event. 3. Hypertension. PLAN: We will proceed with EGD and colonoscopy as planned. Dictated By: BHARGAV DE LA ROSA/NTS Conf#: [id number] DID#: [id number] CC: DAWOOD BERUMEN MD;*EndCC*
[2019-04-28] MEDS: LACTULOSE 30ML CUP PO SCH ×5 (03:50→15:00)
[2019-04-28] MEDS: LEVOTHYROXINE 100 MCG TAB PO SCH (06:33)
[2019-04-28] MEDS: metFORMIN 500 MG TAB PO SCH ×3 (07:55→18:28)
[2019-04-28] MEDS: LORATADINE 10 MG TAB PO SCH (08:06)
[2019-04-28] MEDS: ASPIRIN 81 MG TAB PO SCH (08:06)
[2019-04-28] MEDS: LOSARTAN 50 MG TAB PO SCH (08:06)
[2019-04-28] MEDS: TAMSULOSIN (SR) 0.4 MG CAP PO SCH (08:07)
[2019-04-28] MEDS: HYDROCHLOROTHIAZIDE 25 MG TAB PO SCH (08:07)
[2019-04-28] MEDS: Insulin NOVOLOG SS MILD Algorithm (NPO/TPN/ENTERAL FEEDS) SC SCH ×2 (08:13→13:00)
[2019-04-28] MEDS ORDERED: INSULIN ASPART [NOVOLOG] 3 ML PEN SC SCH (09:00)
--- NOTE | 2019-04-28 13:17 | CONS ---
Assessment/Plan Assessment/Plan Hospital Course (Demo Recall) IMPRESSION: 1. Abnormal electrocardiogram, assess for acute coronary syndrome.-neg trop x 3/NL EF by echo. No ischem,iaby Lexiscan with NL EF 2. Abdominal pain, rule out inferior ischemia.-negtrop x 3/nO ischemia by lexiscan 3. Hypertension. 4. Dyslipidemia. 5. Diabetes mellitus. 6. Dyspepsia. Recc: -Tele -Contiue asa -Continue HCTZ/losartan -ok to proceed with endoscopy at this time at overall low cardiovascular risk and scheduled for today Consultation Date/Type/Reason Admit Date/Time Apr 28, 2019 at 07:57 Initial Consult Date 04/25/19 Type of Consult Cardiology Reason for Consultation abnl ecg Requesting Provider: DAWOOD BERUMEN MD Date/Time of Note DATE: 04/28/19 TIME: 13:16 Exam/Review of Systems Vital Signs Vitals Vital Signs Date Temp Pulse Resp B/P (MAP) Pulse Ox O2 O2 Flow FiO2 Time Delivery Rate 04/28/19 97.4 54 20 145/70 96 Room Air 11:11 (95) 04/25/19 2 09:11 Intake and Output 04/27/19 04/27/19 04/28/19 1515:00 23:00 07:00 IntakeIntake Total 2400 ml 500 ml BalanceBalance 2400 ml 500 ml Exam Exam Review of Systems: CONSTITUTIONAL: No fevers, chills. PULMONARY: No sob CARDIOVASCULAR: No chest pain/palpitations GASTROINTESTINAL:mild abd pain GENITOURINARY: No hematuria/dysuria. MUSCULOSKELETAL: No myagias/arthalgias. PSYCHIATRIC: The patient denies depression. NEUROLOGIC: No weakness Constitutional: alert, oriented Psych: no complaints Head: normocephalic ENMT: mucosa pink and moist Neck: supple, jvd (9 cm water) Respiratory: clear to auscultation Cardiovascular: regular rate and rhythm Gastrointestinal: soft, non-tender Musculoskeletal: muscle tone (normal) Extremities: edema (none) Labs Result Diagram: 04/25/19 0905 04/28/19 0604 Results 24hrs Laboratory Tests Test 04/27/19 13:28 04/27/19 17:40 04/27/19 20:09 04/28/19 06:04 Bedside Glucose 134 175 123 Sodium Level 140 Potassium Level 4.1 Chloride Level 108 Carbon Dioxide Level 26 Anion Gap 6 Blood Urea Nitrogen 20 Creatinine 1.08 Est Glomerular Filtrat Rate mL/min Glucose Level 124 Calcium Level 9.0 Test 04/28/19 08:10 Bedside Glucose 129 Medications Medications Current Medications Nitroglycerin (Nitroglycerin (Sl Tab) 0.4 Mg) 1 tab Q5M UP TO 3 DOSES PRN SL . CHEST PAIN; Start 04/25/19 at 09:30 Aspirin (Aspirin) 81 mg DAILY PO Last administered on 04/28/19 08:06; Admin Dose 81 MG; Start 04/26/19 at 09:00 Hydrochlorothiazide (Hydrochlorothiazide) 25 mg DAILY PO Last administered on 04/28/19 08:07; Admin Dose 25 MG; Start 04/26/19 at 09:00 Losartan Potassium (Cozaar) 100 mg DAILY PO Last administered on 04/28/19 08:06; Admin Dose 100 MG; Start 04/26/19 at 09:00 Latanoprost (Xalatan) 1 drop QHS BOTH EYES Last administered on 04/27/19at 20:12; Admin Dose 1 DROP; Start 04/25/19 at 21:00 Levothyroxine Sodium (Synthroid) 100 mcg AC BREAKFAST PO Last administered on 04/28/19 06:33; Admin Dose 100 MCG; Start 04/26/19 at 07:25 Loratadine (Claritin) 10 mg DAILY PO Last administered on 04/28/19 08:06; Admin Dose 10 MG; Start 04/26/19 at 09:00 Metformin HCl (Glucophage) 500 mg WITH MEALS PO Last administered on 04/27/19at 17:41; Admin Dose 500 MG; Start 04/25/19 at 17:55 Tamsulosin HCl (Flomax) 0.4 mg DAILY PO Last administered on 04/28/19 08:07; Admin Dose 0.4 MG; Start 04/25/19 at 15:00 Miscellaneous Information 1 ea NOTE XX ; Start 04/27/19 at 17:00 Glucose (Glutose) 15 gm Q15M PRN PO DECREASED GLUCOSE; Start 04/27/19 at 17:00 Glucose (Glutose) 22.5 gm Q15M PRN PO DECREASED GLUCOSE; Start 04/27/19 at 17:00 Dextrose (D50w Syringe) 25 ml Q15M PRN IV DECREASED GLUCOSE; Start 04/27/19 at 17:00 Dextrose (D50w Syringe) 50 ml Q15M PRN IV DECREASED GLUCOSE; Start 04/27/19 at 17:00 Glucagon (Glucagen) 1 mg Q15M PRN IM DECREASED GLUCOSE; Start 04/27/19 at 17:00 Glucose (Glutose) 15 gm Q15M PRN BUCCAL DECREASED GLUCOSE; Start 04/27/19 at 17:00 Lactulose (Enulose) 20 gm Q3 PO Last administered on 04/28/19at 03:50; Admin Dose 20 GM; Start 04/27/19 at 21:00 Insulin Aspart (Novolog Insulin Pen) (Adult SC Insulin - Mild Algorithm)... Q4 SC ; Start 04/28/19 at 09:00 NICOLE TURNER Apr 28, 2019 13:17
--- NOTE | 2019-04-28 15:06 | PREAC ---
Date/Time of Note Date/Time of Note DATE: 04/28/19 TIME: 15:03 Anesthesia Eval and Record Evaluation Time Pre-Procedure Interview DATE: 04/28/19 TIME: 15:03 Age 73 Sex male NPO: 8 hrs Preoperative diagnosis Anemia Planned procedure EGD, Colonoscopy Past Medical History Past Medical History: Includes Cardio: HTN, Dyslipidemia, CAD Endo: Diabetes, Hypothyroid Pulm: Smoking Hx GI: Obesity Surgery & Anesthesia Issues No known issue Meds Anticoagulation: No Beta Cyndie within 24 hr: No Reason Beta Cyndie not given: Pt. not on B-Cyndie Reported Medications Loratadine* (Loratadine*) 10 Mg Tablet, 10 MG PO DAILY, #30 TAB 04/25/19 Latanoprost (Latanoprost) 2.5 Ml Drops, 1 DROP BOTH EYES QHS, #1 BOTTLE 04/25/19 Hydrochlorothiazide* (Hydrochlorothiazide*) 25 Mg Tab, 25 MG PO DAILY, #30 TAB 04/25/19 Levothyroxine Sodium* (Levoxyl*) 125 Mcg Tablet, 125 MCG PO EVERY OTHER DAY, #30 TAB 04/25/19 Levothyroxine Sodium* (Levoxyl*) 100 Mcg Tablet, 100 MCG PO EVERY OTHER DAY, #30 TAB 04/25/19 Clopidogrel Bisulfate (Clopidogrel) 75 Mg Tablet, 75 MG PO DAILY, #30 TAB 04/25/19 Metformin* (Glucophage*) 500 Mg Tab, 500 MG PO WITH MEALS, #90 TAB 04/25/19 Losartan Potassium* (Losartan Potassium*) 100 Mg Tablet, 100 MG PO DAILY, TAB 04/25/19 Aspirin* (Aspirin* Chew) 81 Mg Tab.chew, 81 MG PO DAILY, TAB.CHEW 04/25/19 Amlodipine Besylate* (Norvasc*) 5 Mg Tablet, 5 MG PO DAILY, TAB 04/25/19 Tamsulosin Hcl* (Tamsulosin Hcl*) 0.4 Mg Cap.er.24h, 0.4 MG PO DAILY, CAP 05/18/17 Discontinued Reported Medications Silodosin (Rapaflo) 8 Mg Capsule, 8 MG PO HS, CAP 05/18/17 Levothyroxine Sodium (Levothroid) 100 Mcg Tablet, 100 MCG PO DAILY, #30 TAB 05/18/17 [Losartan] No Conflict Check, PO DAILY 05/18/17 Current Medications Nitroglycerin (Nitroglycerin (Sl Tab) 0.4 Mg) 1 tab Q5M UP TO 3 DOSES PRN SL .CHEST PAIN; Start 04/25/19 at 09:30 Aspirin (Aspirin) 81 mg DAILY PO Last administered on 04/28/19at 08:06; Admin Dose 81 MG; Start 04/26/19 at 09:00 Hydrochlorothiazide (Hydrochlorothiazide) 25 mg DAILY PO Last administered on 04/28/19at 08:07; Admin Dose 25 MG; Start 04/26/19 at 09:00 Losartan Potassium (Cozaar) 100 mg DAILY PO Last administered on 04/28/19at 08:06; Admin Dose 100 MG; Start 04/26/19 at 09:00 Latanoprost (Xalatan) 1 drop QHS BOTH EYES Last administered on 04/27/19at 20:12; Admin Dose 1 DROP; Start 04/25/19 at 21:00 Levothyroxine Sodium (Synthroid) 100 mcg AC BREAKFAST PO Last administered on 04/28/19at 06:33; Admin Dose 100 MCG; Start 04/26/19 at 07:25 Loratadine (Claritin) 10 mg DAILY PO Last administered on 04/28/19at 08:06; Admin Dose 10 MG; Start 04/26/19 at 09:00 Metformin HCl (Glucophage) 500 mg WITH MEALS PO Last administered on 04/27/19at 17:41; Admin Dose 500 MG; Start 04/25/19 at 17:55 Tamsulosin HCl (Flomax) 0.4 mg DAILY PO Last administered on 04/28/19at 08:07; Admin Dose 0.4 MG; Start 04/25/19 at 15:00 Miscellaneous Information 1 ea NOTE XX ; Start 04/27/19 at 17:00 Glucose (Glutose) 15 gm Q15M PRN PO DECREASED GLUCOSE; Start 04/27/19 at 17:00 Glucose (Glutose) 22.5 gm Q15M PRN PO DECREASED GLUCOSE; Start 04/27/19 at 17:00 Dextrose (D50w Syringe) 25 ml Q15M PRN IV DECREASED GLUCOSE; Start 04/27/19 at 17:00 Dextrose (D50w Syringe) 50 ml Q15M PRN IV DECREASED GLUCOSE; Start 04/27/19 at 17:00 Glucagon (Glucagen) 1 mg Q15M PRN IM DECREASED GLUCOSE; Start 04/27/19 at 17:00 Glucose (Glutose) 15 gm Q15M PRN BUCCAL DECREASED GLUCOSE; Start 04/27/19 at 17:00 Lactulose (Enulose) 20 gm Q3 PO Last administered on 04/28/19at 03:50; Admin Dose 20 GM; Start 04/27/19 at 21:00 Insulin Aspart (Novolog Insulin Pen) (Adult SC Insulin - Mild Algorithm)... Q4 SC ; Start 04/28/19 at 09:00 Meds reviewed: Yes Allergies Coded Allergies: No Known Allergy (Unverified , 04/25/19) Allergies Reviewed: Yes Labs/Studies Labs Reviewed: Reviewed by anesthesiologist Result Diagram: 04/25/19 0905 04/28/19 0604 Laboratory Tests 04/28/19 06:04 test: N/A Pre-procedure Exam Last vitals Vital Signs Date Temp Pulse Resp B/P (MAP) Pulse Ox O2 O2 Flow FiO2 Time Delivery Rate 04/28/19 97.4 54 20 145/70 96 Room Air 11:11 (95) 04/25/19 2 09:11 Airway: Adequate mouth opening Mallampati: Mallampati III Teeth: Normal Lung: Normal Heart: Normal ASA Physical Status ASA physical status: 3 Emergency: None Planned Anesthetic General/MAC: MAC Pre-operative Attestations Prior to commencing anesthesia and surgery, the patient was re-evaluated, there was verification of: *The patient's identity *The results of appropriate recent lab work and preoperative vital signs *The above evaluation not changing prior to induction *Anesthetic plan, risk benefits, alternative and complications discussed with patient/family; questions answered; patient/family understands, accepts and wishes to proceed. YOLIE VILLALTA MD Apr 28, 2019 15:06
[2019-04-28] MEDS ORDERED: PROPOFOL 60 ML ONE (15:07)
--- NOTE | 2019-04-28 16:31 | PAC ---
Date/Time of Note Date/Time of Note DATE: 04/28/19 TIME: 16:31 Post-Anesthesia Notes Post-Anesthesia Note Last documented vital signs Vital Signs Date Temp Pulse Resp B/P (MAP) Pulse Ox O2 O2 Flow FiO2 Time Delivery Rate 04/28/19 97.4 54 20 145/70 96 Room Air 11:11 (95) 04/25/19 2 09:11 Activity: WNL Respiratory function: WNL Cardiovascular function: WNL Mental status: Baseline Pain reasonably controlled: Yes Hydration appropriate: Yes Nausea/Vomiting absent: Yes YOLIE VILLALTA MD Apr 28, 2019 16:31
--- NOTE | 2019-04-28 17:13 | RADRPT ---
Vent Rate: 52 bpm RR Interval: 1144 msec SC Interval: 186 msec QRS Duration: 109 msec QT Interval: 455 msec QTC Interval: 425 msec P-R-T [place]: 53 - 56 - 226 degrees Sinus rhythm...normal P axis, V-rate 50- 99 Repol abnrm, global ischemia, diffuse leads...ST dep, T neg, ant/lat/inf Electronically Signed By: Fred Akers
--- NOTE | 2019-04-28 17:18 | PN ---
Date/Time of Note Date/Time of Note DATE: 04/28/19 TIME: 17:16 Assessment/Plan VTE Prophylaxis Risk score (from [facility] [place])>0 risk: 4 SCD applied (from [facility] [place]): Yes Pharmacological prophylaxis: NA/contraindicated Pharm contraindication: surgical contra Lines/Catheters IV [facility]ter [facility]from [facility] Peripheral IV Urinary Cath still in place: No Assessment/Plan Hospital Course Patient is taken to EGD, no acute events reported prior to procedure. Resume orders per GI recommendation after patient come back from the procedure. Dr. Posadas is following in gastroenterology consultation. Assessment/Plan -Abnormal EKG, rule out acute coronary syndrome, cardiac enzymes are negative x 3, 2D echo with preserved EF. Lexiscan with no ischemia. continue aspirin. Dr. Ornelas is following in cardiology consultation. -Hypertension, continue Cozaar and hydrochlorothiazide. -Hyperlipidemia, continue statin. -Diabetes mellitus type 2, continue metformin and NovoLog per mild algorithm sliding scale. -Hypothyroidism, continue levothyroxine. -BPH continue tamsulosin. -History of stroke -Former smoker Further recommendations based on clinical course. Plan of care discussed with Dr. Green. Result Diagram: 04/25/19 0905 04/28/19 0604 Results 24hrs Laboratory Tests Test 04/27/19 17:40 04/27/19 20:09 04/28/19 06:04 04/28/19 08:10 Bedside Glucose 175 123 129 Sodium Level 140 Potassium Level 4.1 Chloride Level 108 Carbon Dioxide Level 26 Anion Gap 6 Blood Urea Nitrogen 20 Creatinine 1.08 Est Glomerular Filtrat Rate mL/min Glucose Level 124 Calcium Level 9.0 Test 04/28/19 13:40 04/28/19 15:21 Bedside Glucose 118 115 Exam/Review of Systems Exam Vitals Vital Signs Date Temp Pulse Resp B/P (MAP) Pulse Ox O2 O2 Flow FiO2 Time Delivery Rate 04/28/19 97.6 53 12 116/67 98 Room Air 15:25 (83) 04/25/19 2 09:11 Intake and Output 04/27/19 04/27/19 04/28/19 1515:00 23:00 07:00 IntakeIntake Total 2400 ml 500 ml BalanceBalance 2400 ml 500 ml Results Results 24hrs Laboratory Tests Test 04/27/19 17:40 04/27/19 20:09 04/28/19 06:04 04/28/19 08:10 Bedside Glucose 175 123 129 Sodium Level 140 Potassium Level 4.1 Chloride Level 108 Carbon Dioxide Level 26 Anion Gap 6 Blood Urea Nitrogen 20 Creatinine 1.08 Est Glomerular Filtrat Rate mL/min Glucose Level 124 Calcium Level 9.0 Test 04/28/19 13:40 04/28/19 15:21 Bedside Glucose 118 115 Medications Medication Current Medications Nitroglycerin (Nitroglycerin (Sl Tab) 0.4 Mg) 1 tab Q5M UP TO 3 DOSES PRN SL .CHEST PAIN; Start 04/25/19 at 09:30 Aspirin (Aspirin) 81 mg DAILY PO Last administered on 04/28/19 08:06; Admin Dose 81 MG; Start 04/26/19 at 09:00 Hydrochlorothiazide (Hydrochlorothiazide) 25 mg DAILY PO Last administered on 04/28/19 08:07; Admin Dose 25 MG; Start 04/26/19 at 09:00 Losartan Potassium (Cozaar) 100 mg DAILY PO Last administered on 04/28/19 08:06; Admin Dose 100 MG; Start 04/26/19 at 09:00 Latanoprost (Xalatan) 1 drop QHS BOTH EYES Last administered on 04/27/19 20:12; Admin Dose 1 DROP; Start 04/25/19 at 21:00 Levothyroxine Sodium (Synthroid) 100 mcg AC BREAKFAST PO Last administered on 04/28/19 06:33; Admin Dose 100 MCG; Start 04/26/19 at 07:25 Loratadine (Claritin) 10 mg DAILY PO Last administered on 04/28/19 08:06; Admin Dose 10 MG; Start 04/26/19 at 09:00 Metformin HCl (Glucophage) 500 mg WITH MEALS PO Last administered on 04/27/19 17:41; Admin Dose 500 MG; Start 04/25/19 at 17:55 Tamsulosin HCl (Flomax) 0.4 mg DAILY PO Last administered on 04/28/19 08:07; Admin Dose 0.4 MG; Start 04/25/19 at 15:00 Miscellaneous Information 1 ea NOTE XX ; Start 04/27/19 at 17:00 Glucose (Glutose) 15 gm Q15M PRN PO DECREASED GLUCOSE; Start 6/26/19 at 17:00 Glucose (Glutose) 22.5 gm Q15M PRN PO DECREASED GLUCOSE; Start 04/27/19 at 17:00 Dextrose (D50w Syringe) 25 ml Q15M PRN IV DECREASED GLUCOSE; Start 04/27/19 at 17:00 Dextrose (D50w Syringe) 50 ml Q15M PRN IV DECREASED GLUCOSE; Start 04/27/19 at 17:00 Glucagon (Glucagen) 1 mg Q15M PRN IM DECREASED GLUCOSE; Start 04/27/19 at 17:00 Glucose (Glutose) 15 gm Q15M PRN BUCCAL DECREASED GLUCOSE; Start 04/27/19 at 17:00 Lactulose (Enulose) 20 gm Q3 PO Last administered on 04/28/19at 03:50; Admin Dose 20 GM; Start 04/27/19 at 21:00 Insulin Aspart (Novolog Insulin Pen) (Adult SC Insulin - Mild Algorithm)... Q4 SC ; Start 04/28/19 at 09:00 LAMONTE COLLIER Apr 28, 2019 17:18
[2019-04-28] MEDS: INSULIN ASPART [NOVOLOG] 3 ML PEN SC SCH ×2 (17:55→20:22)
[2019-04-28] MEDS: LATANOPROST 0.005% 2.5 ML OPH BOTH EYES SCH (20:22)
[2019-04-29 03:31] VITALS: BP 131/69; PULSE 55; RESP 18
[2019-04-29 07:27] VITALS: BP 124/62; PULSE 51; RESP 20
[2019-04-29] MEDS: INSULIN ASPART [NOVOLOG] 3 ML PEN SC SCH (07:55)
[2019-04-29] MEDS: LEVOTHYROXINE 100 MCG TAB PO SCH (07:59)
[2019-04-29] MEDS: metFORMIN 500 MG TAB PO SCH (07:59)
[2019-04-29] MEDS: LOSARTAN 50 MG TAB PO SCH (08:00)
[2019-04-29] MEDS: TAMSULOSIN (SR) 0.4 MG CAP PO SCH (08:00)
[2019-04-29] MEDS: HYDROCHLOROTHIAZIDE 25 MG TAB PO SCH (08:00)
[2019-04-29] MEDS: LORATADINE 10 MG TAB PO SCH (08:00)
[2019-04-29] MEDS: ASPIRIN 81 MG TAB PO SCH (08:00)
--- NOTE | 2019-04-29 10:30 | PDOCDIS ---
Discharge Instructions CONDITION [id number] Patient Condition: [id number] Stable HOME CARE INSTRUCTIONS: [id number] Diet Instructions: [id number] ACTIVITY: [id number] Activity Restrictions: [id number] Slowly Increase Activity Rest between Activity Avoid heavy lifting Do not operate Machinery Do not operate Power Tool Avoid Heavy Housework [id number] Bathing Restrictions: [id number] Sponge Bath FOLLOW UP/APPOINTMENTS Follow-up Plan FU with Primary MD x 1 week FU with GI MD as recommended Call 911 or go to the nearest hospital if symptoms get worse. Patient verbalized understanding dc instructions JEREMY JACKSON Apr 29, 2019 10:30
--- NOTE | 2019-04-29 10:31 | DS ---
Date/Time of Note Date/Time of Note DATE: 04/29/19 TIME: 10:31 Discharge Summary Admission/Discharge Info Admit Date/Time Apr 28, 2019 at 07:57 Discharge Date/Time Home Meds Reported Medications Loratadine* (Loratadine*) 10 Mg Tablet, 10 MG PO DAILY, #30 TAB 04/25/19 Latanoprost (Latanoprost) 2.5 Ml Drops, 1 DROP BOTH EYES QHS, #1 BOTTLE 04/25/19 Hydrochlorothiazide* (Hydrochlorothiazide*) 25 Mg Tab, 25 MG PO DAILY, #30 TAB 04/25/19 Levothyroxine Sodium* (Levoxyl*) 125 Mcg Tablet, 125 MCG PO EVERY OTHER DAY, #30 TAB 04/25/19 Levothyroxine Sodium* (Levoxyl*) 100 Mcg Tablet, 100 MCG PO EVERY OTHER DAY, #30 TAB 04/25/19 Clopidogrel Bisulfate (Clopidogrel) 75 Mg Tablet, 75 MG PO DAILY, #30 TAB 04/25/19 Metformin* (Glucophage*) 500 Mg Tab, 500 MG PO WITH MEALS, #90 TAB 04/25/19 Losartan Potassium* (Losartan Potassium*) 100 Mg Tablet, 100 MG PO DAILY, TAB 04/25/19 Aspirin* (Aspirin* Chew) 81 Mg Tab.chew, 81 MG PO DAILY, TAB.CHEW 04/25/19 Amlodipine Besylate* (Norvasc*) 5 Mg Tablet, 5 MG PO DAILY, TAB 04/25/19 Tamsulosin Hcl* (Tamsulosin Hcl*) 0.4 Mg Cap.er.24h, 0.4 MG PO DAILY, CAP 05/18/17 Discontinued Reported Medications Silodosin (Rapaflo) 8 Mg Capsule, 8 MG PO HS, CAP 05/18/17 Levothyroxine Sodium (Levothroid) 100 Mcg Tablet, 100 MCG PO DAILY, #30 TAB 05/18/17 [Losartan] No Conflict Check, PO DAILY 05/18/17 Follow-up Plan FU with Primary MD x 1 week FU with GI MD as recommended Call 911 or go to the nearest hospital if symptoms get worse. Patient verbalized understanding dc instructions Primary Care Provider Not On Staff Doctor Pending Labs Laboratory Tests Test 04/28/19 13:40 04/28/19 15:21 04/28/19 18:27 6/27/19 20:22 Bedside 118 115 111 169 Glucose mg/dL (70-220) mg/dL (70-220) mg/dL (70-220) mg/dL (70-220) Test 04/29/19 07:58 Bedside 126 Glucose mg/dL (70-220) JEREMY JACKSON Apr 29, 2019 10:31
[2019-04-29 11:04] VITALS: BP 127/73; PULSE 59; RESP 20
--- NOTE | 2019-04-29 12:28 | CONS ---
Consult Date/Type/Reason Admit Date/Time Apr 28, 2019 at 07:57 Initial Consult Date Requesting Provider: DAWOOD BERUMEN MD Date/Time of Note DATE: 04/29/19 TIME: 12:27 Subjective No acute events - pt comfortable - Stress test normal - dispo planned ROS: No fever, no chills, no nausea, no vomiting, no diarrhea/constipation No recent weight changes No chest pain, no PND, no orthopnea No dizziness, blurred vision No thirst, no heat or cold intolerance Objective Vitals Vital Signs Date Temp Pulse Resp B/P (MAP) Pulse Ox O2 O2 Flow FiO2 Time Delivery Rate 04/29/19 98.2 59 20 127/73 95 Room Air 11:04 (91) 04/25/19 2 09:11 Intake and Output 04/28/19 04/28/19 04/29/19 1515:00 23:00 07:00 IntakeIntake Total 400 ml BalanceBalance 400 ml Exam General: WN/WD/NAD, AOx 3 HEENT: Unicetric/atraumatic/EOMI (follows commands) NECK: JVD elevated, no thyromegaly Lymph: no lymphadenopathy HEART: regular with no S3, II/ systolic murmur at apex LUNGS: Coarse sounds ABD: soft, NT, ND, +BS : Intact Neuro: non focal SKIN: chronic changes EXT: trace edema Results/Medications Result Diagram: 04/25/19 0905 04/28/19 0604 Results 24 hrs Laboratory Tests Test 04/28/19 13:40 04/28/19 15:21 04/28/19 18:27 04/28/19 20:22 Bedside Glucose 118 115 111 169 Test 04/29/19 07:58 Bedside Glucose 126 Home Meds Reported Medications Loratadine* (Loratadine*) 10 Mg Tablet, 10 MG PO DAILY, #30 TAB 04/25/19 Latanoprost (Latanoprost) 2.5 Ml Drops, 1 DROP BOTH EYES QHS, #1 BOTTLE 04/25/19 Hydrochlorothiazide* (Hydrochlorothiazide*) 25 Mg Tab, 25 MG PO DAILY, #30 TAB 04/25/19 Levothyroxine Sodium* (Levoxyl*) 125 Mcg Tablet, 125 MCG PO EVERY OTHER DAY, #30 TAB 04/25/19 Levothyroxine Sodium* (Levoxyl*) 100 Mcg Tablet, 100 MCG PO EVERY OTHER DAY, #30 TAB 04/25/19 Clopidogrel Bisulfate (Clopidogrel) 75 Mg Tablet, 75 MG PO DAILY, #30 TAB 04/25/19 Metformin* (Glucophage*) 500 Mg Tab, 500 MG PO WITH MEALS, #90 TAB 04/25/19 Losartan Potassium* (Losartan Potassium*) 100 Mg Tablet, 100 MG PO DAILY, TAB 04/25/19 Aspirin* (Aspirin* Chew) 81 Mg Tab.chew, 81 MG PO DAILY, TAB.CHEW 04/25/19 Amlodipine Besylate* (Norvasc*) 5 Mg Tablet, 5 MG PO DAILY, TAB 04/25/19 Tamsulosin Hcl* (Tamsulosin Hcl*) 0.4 Mg Cap.er.24h, 0.4 MG PO DAILY, CAP 05/18/17 Discontinued Reported Medications Silodosin (Rapaflo) 8 Mg Capsule, 8 MG PO HS, CAP 05/18/17 Levothyroxine Sodium (Levothroid) 100 Mcg Tablet, 100 MCG PO DAILY, #30 TAB 05/18/17 [Losartan] No Conflict Check, PO DAILY 05/18/17 Medications Current Medications Nitroglycerin (Nitroglycerin (Sl Tab) 0.4 Mg) 1 tab Q5M UP TO 3 DOSES PRN SL .CHEST PAIN; Start 04/25/19 at 09:30 Aspirin (Aspirin) 81 mg DAILY PO Last administered on 04/29/19at 08:00; Admin Dose 81 MG; Start 04/26/19 at 09:00 Hydrochlorothiazide (Hydrochlorothiazide) 25 mg DAILY PO Last administered on 04/29/19at 08:00; Admin Dose 25 MG; Start 04/26/19 at 09:00 Losartan Potassium (Cozaar) 100 mg DAILY PO Last administered on 04/29/19at 08:00; Admin Dose 100 MG; Start 04/26/19 at 09:00 Latanoprost (Xalatan) 1 drop QHS BOTH EYES Last administered on 04/28/19at 20:22; Admin Dose 1 DROP; Start 04/25/19 at 21:00 Levothyroxine Sodium (Synthroid) 100 mcg AC BREAKFAST PO Last administered on 04/29/19at 07:59; Admin Dose 100 MCG; Start 04/26/19 at 07:25 Loratadine (Claritin) 10 mg DAILY PO Last administered on 04/29/19at 08:00; Admin Dose 10 MG; Start 04/26/19 at 09:00 Metformin HCl (Glucophage) 500 mg WITH MEALS PO Last administered on 04/29/19at 07:59; Admin Dose 500 MG; Start 04/25/19 at 17:55 Tamsulosin HCl (Flomax) 0.4 mg DAILY PO Last administered on 04/29/19at 08:00; Admin Dose 0.4 MG; Start 04/25/19 at 15:00 Miscellaneous Information 1 ea NOTE XX ; Start 04/27/19 at 17:00 Glucose (Glutose) 15 gm Q15M PRN PO DECREASED GLUCOSE; Start 04/27/19 at 17:00 Glucose (Glutose) 22.5 gm Q15M PRN PO DECREASED GLUCOSE; Start 04/27/19 at 17:00 Dextrose (D50w Syringe) 25 ml Q15M PRN IV DECREASED GLUCOSE; Start 04/27/19 at 17:00 Dextrose (D50w Syringe) 50 ml Q15M PRN IV DECREASED GLUCOSE; Start 04/27/19 at 17:00 Glucagon (Glucagen) 1 mg Q15M PRN IM DECREASED GLUCOSE; Start 04/27/19 at 17:00 Glucose (Glutose) 15 gm Q15M PRN BUCCAL DECREASED GLUCOSE; Start 04/27/19 at 17:00 Insulin Aspart (Novolog Insulin Pen) NOVOLOG *MILD* ALGORITHM WITH MEALS BEDTIME SC ; Start 04/28/19 at 17:55 Assessment/Plan Hospital Course (Demo Recall) 1. Abnormal electrocardiogram, assess for acute coronary syndrome - Stress test complete, will monitor clinically now. Stress test negative - r/o LA. 2. Abdominal pain, rule out inferior ischemia- r/o LA now. 3. Hypertension - on meds, well maintained currently. BP in good range. 4. Dyslipidemia- tretaed. 5. Diabetes mellitus - on meds, keep euglycemic. Treated. 6. Dyspepsia- defer to GI. MARKUS MIX MD Apr 29, 2019 12:28
--- NOTE | 2019-04-29 14:29 | CONS ---
DATE OF ADMISSION: 04/28/2019 DATE OF CONSULTATION: 04/29/2019 SUBJECTIVE: From subjective standpoint, he has no significant pain. He was admitted to the hospital because of abnormal EKG that was detected. The preop finding in the GI lab and he underwent cardiac workup including stress test apparently he has no significant cardiac issues. The patient was cleared by Dr. Ornelas and patient had upper endoscopy as well as lower end oscopy. Upper endoscopy showed gastritis of severe degree. Colonoscopy was unremarkable. PLAN: At this time, the patient can be discharged on omeprazole 40 mg q.a.m. and then will wait for the pathology report and will follow him as an outpatient. Dictated By: BHARGAV DE LA ROSA/NTS Conf#: [id number] DID#: [id number] CC: DAWOOD BERUMEN MD;*EndCC*
== END 2019-04-29 13:15 | disposition home or self-care (01) | DRG 316 ==
LOC: E/R 08:45 → TEL 09:07 → OBSVTOIN 04-28 07:57
PROVIDERS: ADMIT Internal Medicine; ATTEND Internal Medicine
PROC: 0DD68ZX Extraction of Stomach, Via Natural or Artificial Opening Endoscopic, Diagnostic (ICD-10-PCS; principal; 2019-04-28 15:30)
PROC: 0DBP8ZX Excision of Rectum, Via Natural or Artificial Opening Endoscopic, Diagnostic (ICD-10-PCS; 2019-04-28 15:30)
DX: R94.31 Abnormal electrocardiogram [ECG] [EKG] (principal); K62.1 Rectal polyp; K20.9 Esophagitis, unspecified; E78.5 Hyperlipidemia, unspecified; E11.9 Type 2 diabetes mellitus without complications; E03.9 Hypothyroidism, unspecified; I10 Essential (primary) hypertension; N40.0 Benign prostatic hyperplasia without lower urinary tract symptoms; Z87.891 Personal history of nicotine dependence; R10.13 Epigastric pain; Z86.73 Personal history of transient ischemic attack (TIA), and cerebral infarction without residual deficits; K44.9 Diaphragmatic hernia without obstruction or gangrene; K29.50 Unspecified chronic gastritis without bleeding; K57.90 Diverticulosis of intestine, part unspecified, without perforation or abscess without bleeding; D64.9 Anemia, unspecified; E66.9 Obesity, unspecified; Z68.32 Body mass index [BMI] 32.0-32.9, adult
CPT/HCPCS: 36415; 71045; 78452; 80048; 80053; 80061; 82550; 82553; 82962; 83036; 84439; 84443; 84484; 85025; 88305; 88312; 93005; 93017; 93306; G0378; A9500; A9505; J1815; J2785